=== PATIENT | male | born 1995 | race Two or more races ===

== ENCOUNTER 2023-09-15 08:18 | Day surgery (SDC) | payer OTHER ==
[2023-09-09 11:35] LABS: HEMATOCRIT 42.3 % (39.0-48.0); HEMOGLOBIN 14.5 g/dL (13-16.00); MEAN CELL VOLUME 88.8 fL (80.0-100.00); MEAN CORPUSCULAR HEMOGLOBIN 30.5 pg (27.00-32.0); MEAN CORPUSCULAR HGB CONC 34.4 g/dl (32.0-36.0); PLATELET COUNT 244 K/uL (150-450); RED BLOOD COUNT 4.76 M/uL (4.00-6.00); RED CELL DISTRIBUTION WIDTH 13.7 % (11.5-14.5)
[2023-09-09 12:14] LABS: INR 1.14; PARTIAL THROMBOPLASTIN TIME 30.1 SECONDS (22.0-34.0); PROTHROMBIN TIME 11.9 SECONDS (9.0-11.5)
[2023-09-09 12:19] LABS: ALBUMIN 4.7 gm/dL (3.4-5.0); BILIRUBIN TOTAL 2.3 mg/dL (0.3-1.2); CREATININE SERUM 0.96 mg/dL (0.70-1.30); GFR 93.96; GLOBULINA 2.9 G/DL (2.4-3.5); POTASSIUM 4.35 mEq/L (3.5-5.1); TOTAL PROTEIN 7.6 gm/dL (6.4-8.2)
[2023-09-15] MEDS ORDERED: DIBUCAINE 30 GM TUBE ONE (10:58)
[2023-09-15] MEDS ORDERED: CEFTRIAXONE SODIUM 2,000 MG VIAL ONE (10:58)
[2023-09-15] MEDS ORDERED: POVIDONE-IODINE 118 ML BOTT TOP ONE (10:58)
[2023-09-15] MEDS ORDERED: HEMOSTATIC MATRIX 1 KIT KIT TOP ONE (10:58)
[2023-09-15] MEDS ORDERED: METRONIDAZOLE/SODIUM CHLORIDE 500 MG/100 ML PIGGYBACK IV ONE (10:59)
[2023-09-15] MEDS ORDERED: LIDOCAINE HCL 1%/EPINEPHRINE 20ML VIAL IJ ONE (12:00)
[2023-09-15] MEDS ORDERED: BUPIVACAINE HCL 30 ML VIAL IJ ONE (12:00)
[2023-09-15] MEDS ORDERED: OXYC1TAB9 PO (12:27)
[2023-09-15] MEDS ORDERED: TAMSULOSIN HCL 0.4 MG CAP PO ONE ×2 (12:30→14:23)
== END 2023-09-15 16:45 | disposition home or self-care (01) ==
LOC: CIR.AMB 08:18
PROVIDERS: ATTEND Surgery
DX: K62.89 Other specified diseases of anus and rectum (principal); A63.0 Anogenital (venereal) warts; K62.0 Anal polyp